=== PATIENT | female | born 1940 | race Caucasian/White ===

== ENCOUNTER 2017-01-22 13:46 | Emergency (ER) | payer OTHER ==
--- NOTE | ~2017-01-22 | CR173 ---
[facility] A Service of [facility] RADIOLOGY TEXT RESULTS PATIENT: VINCE GAUTAM LOCATION: [facility] : 38 UNIT #: [id number] AGE: [address]: Johny Mahmood MD SEX: F ORDER DR: [id number] [facility] [address] [place], [place] [address] [id number] E MR#: [id number] Acc #: [id number] NAME: VINCE GAUTAM : 1940 SEX: F STUDY DATE/TIME: 01/22/2017 13:53 UNIT: [facility] ROOM: STUDY DESCRIPTION: CR Knee 3 Views Rt Attending Physician: Johny Mahmood M.D. Ordering Physician: Johny Mahmood M.D. Primary Care Physician: Teri Cervantes Aprn MEDICAL IMAGING REPORT This report is preliminary unless electronic signature is present EXAM Right knee series, 01/22/2017. HISTORY Trauma. Pain in right knee today. Fell this a.m. TECHNIQUE AP lateral and sunrise views of the right knee are presented. FINDINGS No fracture or malalignment. Mild narrowing medial and lateral joint space compartments, probably more pronounced medially. Moderate narrowing patellofemoral joint space compartment. Scattered articular surface marginal osteophytes. No soft tissue defect, subcutaneous air, or radiodense foreign body. No joint effusion. Small fabella posteriorly. Atherosclerotic arterial calcifications. Dictated by... Phoenix Shaikh M.D. THIS IS AN ELECTRONICALLY VERIFIED REPORT Phoenix Shaikh M.D. at 01/23/2017 5:55 PM AYLIN/tonia TD: 01/22/2017 15:23 JOB #: [id number] MEDICAL IMAGING REPORT Page 1 of 1 COPY
[~2017-01-22 13:46] MED LIST: ACETAMINOPHEN PO; ALPRAZOLAM PO; ASPIRIN PO; AVANDIA PO; CALCIUM + D 6001 TA1 PO; CIPRO PO; CLOBEVATE45 GM TOP; COLACE PO; DURAGESIC75 MCG EXT; FLAGYL PO; FLUOXETINE HCL20 M1 PO; FORTAMET1000 MG/B1 PO; GLUCOPHAGE XR500 MG PO; GLUCOTROL PO; HUMALOG100 U/ML SUBQ; HUMULIN R100 U/ML SUBQ; HUMULIN R500 U/ML SUBQ; INSULIN; JANUMET 50-501 UDTAB PO; LANTUS SUBQ; LEVAQUIN750 MG PO; LEVOTHROID50 MCG PO; LEVOTHYROXINE50 MCG PO; LISINOPRIL PO; LISINOPRIL20 MG PO; LOPRESSOR PO; LORTAB 5/500 TA1 TA1 PO; METFORMIN PO; METHADONE HCL10 MG PO; METHADONE PO; MIRALAX255 GM PO; NOVOLIN R100 U/ML INJ; NOVOLOG100 U/M1 SUBQ; PHENERGAN SUPP25 MG PR; PHENERGAN25 M1 PO; PHENERGAN25 MG PO; PRINIVIL20 M1 PO; PROZAC PO; SIMVASTATIN40 MG PO; SIMVASTATIN80 MG PO; SYNTHROID PO; TOPROL XL 50 MG50 MG PO; TOPROL XL PO; VICODIN 5/1 TAB 5/50 PO; VICODIN 5/500 T1 TAB PO; VOLTAREN50 MG; ZOCOR PO; ZOFRAN PO; ZOFRAN8 MG PO
== END 2017-01-22 15:46 | disposition home or self-care (01) ==
LOC: CED 13:46
DX: S80.01XA Contusion of right knee, initial encounter (principal); E11.9 Type 2 diabetes mellitus without complications; E78.5 Hyperlipidemia, unspecified; F41.9 Anxiety disorder, unspecified; F17.200 Nicotine dependence, unspecified, uncomplicated; Z79.899 Other long term (current) drug therapy; Z79.4 Long term (current) use of insulin; W01.0XXA Fall on same level from slipping, tripping and stumbling without subsequent striking against object, initial encounter
CPT/HCPCS: 29530; 73562; 99283

== ENCOUNTER 2017-02-14 04:35 | Emergency (ER) | payer OTHER ==
[2017-02-14 05:11] LABS: URINE SOURCE CLEAN CATCH
[2017-02-14 05:18] LABS: URINE APPEARANCE CLEAR; URINE BILIRUBIN NEG (NEG); URINE BLOOD NEG (NEG); URINE COLOR YELLOW; URINE GLUCOSE NEG (NEG); URINE KETONE NEG (NEG); URINE LEUKOCYTE ESTERASE NEG (NEG); URINE NITRATE NEG (NEG); URINE PH 5.5 (5-8); URINE PROTEIN NEG (NEG); URINE SPECIFIC GRAVITY 1.006 (1.003-1.035); URINE UROBILINOGEN 0.2 MG/DL (NEG)
[2017-02-14 05:20] LABS: BASOPHIL% 0.3 % (0-2.5); EOSINOPHIL% 0.4 % (0.0-7.0); HEMATOCRIT 37.9 % (35.0-45.0); HEMOGLOBIN 12.8 gm/dL (12.0-16.0); LYMPHOCYTE# 1.9 X10e3 (1.0-3.5); LYMPHOCYTE% 22.7 % (17.0-45.0); MEAN CELL VOLUME 88.2 FL (83-96); MEAN CORPUSCULAR HEMOGLOBIN 29.8 PG (28-34); MEAN CORPUSCULAR HGB CONC 33.7 g/dL (30-36); MEAN PLATELET VOLUME 9.6 FL (6.5-11.5); MONOCYTE# 0.3 X10e3 (0-1.0); MONOCYTE% 3.7 % (3.0-12.0); NEUTROPHIL% 72.9 % (40-75); PLATELET COUNT 143 X10e3 (140-420); RED CELL DISTRIBUTION WIDTH 13.2 % (11.0-15.5); WHITE BLOOD COUNT 8.3 X10e3 (4.0-10.5)
[2017-02-14 05:23] LABS: DIFF IND NO
[2017-02-14 05:33] LABS: CULTURE INDICATED? NO
[2017-02-14 06:15] LABS: ALBUMIN SERUM 3.8 g/dL (3.5-5.0); BILIRUBIN, DIRECT 0.1 mg/dL (0.0-0.2); BILIRUBIN,INDIRECT 0.4 mg/dL (0.0-0.9); BILIRUBIN,TOTAL 0.5 mg/dL (0.2-2.0); BUN/CREATININE RATIO 16.66; CALCIUM SERUM 9.1 mg/dL (8.4-10.2); CREATININE SERUM 0.9 mg/dL (0.6-1.4); GLOM FILT RATE Estimated 61.7 mL/min (>60); POTASSIUM 3.8 mmol/L (3.5-5.1); PROTEIN TOTAL SERUM 7.3 g/dL (6.0-8.3)
== END 2017-02-14 06:30 | disposition home or self-care (01) ==
LOC: CED 04:35
PROVIDERS: Emergency Medicine
DX: F11.23 Opioid dependence with withdrawal (principal); E11.9 Type 2 diabetes mellitus without complications; I10 Essential (primary) hypertension; Z90.710 Acquired absence of both cervix and uterus; Z90.49 Acquired absence of other specified parts of digestive tract; F17.200 Nicotine dependence, unspecified, uncomplicated; Z79.899 Other long term (current) drug therapy
CPT/HCPCS: 36415; 80048; 80076; 81003; 83690; 85025; 96361; 96365; 96375; 96376; 99284; J1885; J2405; J2550

== ENCOUNTER 2017-06-24 18:05 | Emergency (ER) | payer OTHER ==
[~2017-06-24] VITALS: Ht 165.1 cm; Wt 63.5 kg
== END 2017-06-24 20:52 | disposition left against medical advice (07) ==
LOC: CED 18:05
DX: Z53.21 Procedure and treatment not carried out due to patient leaving prior to being seen by health care provider (principal)